=== PATIENT | female | born 1955 | race Caucasian/White ===

== ENCOUNTER 2020-05-26 17:06 | Inpatient (IN) | payer SELFPAY ==
[2020-05-26 17:48] LABS: #Monocytes 0.4 10x3/uL (0.0-1.1); #Neutrophils 4.3 10x3/uL (1.5-8.4); %Basophils 0.2 % (0.0-2.0); %Lymphocytes 15.2 % (18.0-47.0); %Monocytes 6.8 % (0.0-10.0); %Neutrophils 77.6 % (40.0-75.0); Hemoglobin 12.2 g/dL (12.0-15.5); Mean Corpuscular HGB CONC 31.5 g/dL (32.0-36.0); Mean Corpuscular Hemoglobin 25.8 pg (27.0-33.0); Mean Platelet Volume 9.7 fl (7.4-10.4); Platelet Count 320 10x3/uL (150-450); RBC Distribution Width 17.9 % (11.5-14.5); Red Blood Cell (RBC) Count 4.72 10x6/uL (3.90-5.03); White Blood Cell (WBC) Count 5.5 10x3/uL (3.5-10.5)
[2020-05-26 18:00] LABS: ALT (SGPT) 20 U/L (8-55); AST (SGOT) 35 U/L (5-34); Albumin 4.2 g/dL (3.4-4.8); Alkaline Phosphatase 66 U/L (40-110); Anion Gap 13 mmol/L (10-20); BUN (Urea Nitrogen) 12 mg/dL (9.8-20.1); Bilirubin, Total 0.4 mg/dL (0.2-1.2); Calc. Creatinine Clearance 0 mL/min (70-130); Calcium 10.3 mg/dL (7.8-10.44); Carbon Dioxide 31 mmol/L (23-31); Chloride 89 mmol/L (98-107); Globulin 3.4 g/dL (2.4-3.5); Glucose 117 mg/dL (80-115); Potassium 3.3 mmol/L (3.5-5.1); Protein, Total 7.6 g/dL (5.8-8.1); Sodium 130 mmol/L (136-145)
[2020-05-26] MEDS ORDERED: Dexamethasone 4 mg/ml Vial ONE (20:25)
[2020-05-26 22:13] LABS: SARS-CoV-2 NAA Rapid Test DETECTED (NotDetected)
[2020-05-26] MEDS ORDERED: Ondansetron PF 4 MG/2 ML Vial IVP PRN (22:18)
[2020-05-26] MEDS ORDERED: Acetaminophen 325 MG TAB PO PRN (22:18)
[2020-05-26] MEDS ORDERED: Calcium Carbonate 500 MG ChewTAB PO PRN (22:18)
[2020-05-26] MEDS ORDERED: Senokot S 8.6-50 MG TAB PO PRN (22:18)
[2020-05-26] MEDS ORDERED: Sodium Chloride 0.9% 1,000 ML IV SCH (22:30)
[2020-05-27 00:24] VITALS: BMI 42.9
[2020-05-27] MEDS ORDERED: Potassium Chloride 20 MEQ TAB PO SCH (01:05)
[2020-05-27 04:04] LABS: Legionella Urinary Ag Negative (Negative); Strep pneumo Urine Ag NEGATIVE (NEGATIVE)
[2020-05-27 07:10] LABS: #Monocytes 0.3 10x3/uL (0.0-1.1); #Neutrophils 1.9 10x3/uL (1.5-8.4); %Lymphocytes 22.3 % (18.0-47.0); %Monocytes 9.4 % (0.0-10.0); %Neutrophils 67.9 % (40.0-75.0); Hemoglobin 10.8 g/dL (12.0-15.5); Mean Corpuscular HGB CONC 30.9 g/dL (32.0-36.0); Mean Corpuscular Hemoglobin 25.4 pg (27.0-33.0); Mean Corpuscular Volume 81.9 fl (81.6-98.3); Mean Platelet Volume 9.6 fl (7.4-10.4); Platelet Count 295 10x3/uL (150-450); RBC Distribution Width 18.1 % (11.5-14.5); Red Blood Cell (RBC) Count 4.26 10x6/uL (3.90-5.03); White Blood Cell (WBC) Count 2.8 10x3/uL (3.5-10.5)
[2020-05-27 07:38] LABS: ALT (SGPT) 17 U/L (8-55); AST (SGOT) 34 U/L (5-34); Albumin 3.6 g/dL (3.4-4.8); Alkaline Phosphatase 54 U/L (40-110); Anion Gap 15 mmol/L (10-20); BUN (Urea Nitrogen) 10 mg/dL (9.8-20.1); Bilirubin, Total 0.3 mg/dL (0.2-1.2); CRP (Inflammatory) 14.83 mg/dL (= or < 0.5); Calc. Creatinine Clearance 172 mL/min (70-130); Carbon Dioxide 23 mmol/L (23-31); Chloride 97 mmol/L (98-107); Globulin 3.1 g/dL (2.4-3.5); Glucose 120 mg/dL (80-115); Potassium 4.2 mmol/L (3.5-5.1); Protein, Total 6.7 g/dL (5.8-8.1); Sodium 131 mmol/L (136-145)
[2020-05-27] MEDS: Cepastat Lozenges 1 LOZ PO PRN ×2 (07:55→21:21)
[2020-05-27] MEDS ORDERED: Lisinopril 10 MG TAB PO SCH (09:00)
[2020-05-27] MEDS: Levothyroxine Sodium 50 MCG TAB PO SCH (09:06)
[2020-05-27] MEDS: Enoxaparin Sodium 40 MG/0.4 ML SYRINGE SC SCH ×2 (09:22→21:22)
[2020-05-27] MEDS: Atenolol 25 MG TAB PO SCH (09:22)
[2020-05-27] MEDS: Benzonatate 100 MG CAP PO SCH ×3 (09:44→21:21)
[2020-05-27] MEDS: Cholecalciferol 1,000 UNITS (25 MCG) TAB PO SCH (09:44)
[2020-05-27] MEDS: Escitalopram Oxalate 10 mg Tablet PO SCH (09:45)
[2020-05-27] MEDS: Ascorbic Acid 500 mg Chewable Tablet PO SCH (09:45)
[2020-05-27] MEDS: Dexamethasone 4 mg/ml Vial SLOW IVP SCH (09:45)
[2020-05-27] MEDS: Aspirin 81 mg Enteric Coated Tablet PO SCH (09:45)
[2020-05-27] MEDS: Zinc Gluconate 50 MG TAB PO SCH (09:45)
[2020-05-27] MEDS ORDERED: REMDESIVIR (EUA) 200 MG in Sodium Chloride 0.9% 250 ML 210 ML IV SCH (10:00)
[2020-05-27] MEDS ORDERED: Sodium Chloride 0.9% 250 ML 250 ML ONE (10:08)
[2020-05-27 10:20] LABS: Ferritin 123.15 ng/mL (10-291); Thyroid Stimulating Hormone 2.5091 uIU/mL (0.35-4.94)
[2020-05-27] MEDS: Atorvastatin Calcium 10 MG TAB PO SCH (21:21)
[2020-05-28] MEDS: Levothyroxine Sodium 50 MCG TAB PO SCH (05:30)
[2020-05-28 06:23] LABS: ALT (SGPT) 15 U/L (8-55); AST (SGOT) 30 U/L (5-34); Albumin 3.4 g/dL (3.4-4.8); Alkaline Phosphatase 51 U/L (40-110); Bilirubin, Direct 0.2 mg/dL (0.1-0.3); Bilirubin, Total 0.3 mg/dL (0.2-1.2); Protein, Total 6.2 g/dL (5.8-8.1)
[2020-05-28 09:04] LABS: #Monocytes 0.8 10x3/uL (0.0-1.1); #Neutrophils 5.1 10x3/uL (1.5-8.4); %Basophils 0.4 % (0.0-2.0); %Eosinophils 0.1 % (0.0-6.0); %Monocytes 11.5 % (0.0-10.0); %Neutrophils 70.9 % (40.0-75.0); Hemoglobin 11.4 g/dL (12.0-15.5); Mean Corpuscular HGB CONC 30.6 g/dL (32.0-36.0); Mean Corpuscular Hemoglobin 25.7 pg (27.0-33.0); Mean Corpuscular Volume 83.8 fl (81.6-98.3); Mean Platelet Volume 10.1 fl (7.4-10.4); Platelet Count 309 10x3/uL (150-450); RBC Distribution Width 19.3 % (11.5-14.5); Red Blood Cell (RBC) Count 4.44 10x6/uL (3.90-5.03); White Blood Cell (WBC) Count 7.1 10x3/uL (3.5-10.5)
[2020-05-28 09:12] LABS: Anion Gap 17 mmol/L (10-20); BUN (Urea Nitrogen) 16 mg/dL (9.8-20.1); Calc. Creatinine Clearance 164 mL/min (70-130); Carbon Dioxide 22 mmol/L (23-31); Chloride 99 mmol/L (98-107); Glucose 80 mg/dL (80-115); Potassium 4.1 mmol/L (3.5-5.1); Sodium 134 mmol/L (136-145)
[2020-05-28] MEDS: Dexamethasone 4 mg/ml Vial SLOW IVP SCH (09:38)
[2020-05-28] MEDS: Benzonatate 100 MG CAP PO SCH ×3 (09:39→20:20)
[2020-05-28] MEDS: Atenolol 25 MG TAB PO SCH (09:39)
[2020-05-28] MEDS: Cholecalciferol 1,000 UNITS (25 MCG) TAB PO SCH (09:39)
[2020-05-28] MEDS: Escitalopram Oxalate 10 mg Tablet PO SCH (09:39)
[2020-05-28] MEDS: Aspirin 81 mg Enteric Coated Tablet PO SCH (09:39)
[2020-05-28] MEDS: Ascorbic Acid 500 mg Chewable Tablet PO SCH (09:39)
[2020-05-28] MEDS: Enoxaparin Sodium 40 MG/0.4 ML SYRINGE SC SCH ×2 (09:40→20:20)
[2020-05-28] MEDS: Zinc Gluconate 50 MG TAB PO SCH (09:40)
[2020-05-28] MEDS: Cepastat Lozenges 1 LOZ PO PRN ×3 (09:44→20:21)
[2020-05-28] MEDS: REMDESIVIR (EUA) 100 MG in Sodium Chloride 0.9% 250 ML 230 ML IV SCH (10:57)
[2020-05-28] MEDS: Atorvastatin Calcium 10 MG TAB PO SCH (20:20)
[2020-05-29] MEDS: Levothyroxine Sodium 50 MCG TAB PO SCH (06:06)
[2020-05-29 08:38] LABS: ALT (SGPT) 15 U/L (8-55); AST (SGOT) 30 U/L (5-34); Albumin 3.3 g/dL (3.4-4.8); Alkaline Phosphatase 60 U/L (40-110); Bilirubin, Direct 0.2 mg/dL (0.1-0.3); Bilirubin, Total 0.4 mg/dL (0.2-1.2); Protein, Total 6.1 g/dL (5.8-8.1)
[2020-05-29] MEDS: REMDESIVIR (EUA) 100 MG in Sodium Chloride 0.9% 250 ML 230 ML IV SCH (09:22)
[2020-05-29] MEDS: Aspirin 81 mg Enteric Coated Tablet PO SCH (09:23)
[2020-05-29] MEDS: Zinc Gluconate 50 MG TAB PO SCH (09:23)
[2020-05-29] MEDS: Atenolol 25 MG TAB PO SCH (09:23)
[2020-05-29] MEDS: Cepastat Lozenges 1 LOZ PO PRN ×2 (09:23→21:45)
[2020-05-29] MEDS: Ascorbic Acid 500 mg Chewable Tablet PO SCH (09:24)
[2020-05-29] MEDS: Escitalopram Oxalate 10 mg Tablet PO SCH (09:24)
[2020-05-29] MEDS: Benzonatate 100 MG CAP PO SCH ×3 (09:24→21:45)
[2020-05-29] MEDS: Cholecalciferol 1,000 UNITS (25 MCG) TAB PO SCH (09:24)
[2020-05-29] MEDS: Dexamethasone 4 mg/ml Vial SLOW IVP SCH (09:24)
[2020-05-29] MEDS: Enoxaparin Sodium 40 MG/0.4 ML SYRINGE SC SCH ×2 (09:25→21:45)
[2020-05-29] MEDS: Atorvastatin Calcium 10 MG TAB PO SCH (21:45)
[2020-05-30 06:04] LABS: %Lymphocytes 13.2 % (18.0-47.0); %Monocytes 6.8 % (0.0-10.0); %Neutrophils 79.2 % (40.0-75.0); Hemoglobin 11.1 g/dL (12.0-15.5); Mean Corpuscular HGB CONC 30.6 g/dL (32.0-36.0); Mean Corpuscular Hemoglobin 24.9 pg (27.0-33.0); Mean Corpuscular Volume 81.4 fl (81.6-98.3); Mean Platelet Volume 10.2 fl (7.4-10.4); Platelet Count 420 10x3/uL (150-450); RBC Distribution Width 18.2 % (11.5-14.5); Red Blood Cell (RBC) Count 4.46 10x6/uL (3.90-5.03); White Blood Cell (WBC) Count 9.3 10x3/uL (3.5-10.5)
[2020-05-30 06:05] LABS: #Monocytes 0.6 10x3/uL (0.0-1.1); #Neutrophils 7.4 10x3/uL (1.5-8.4); %Basophils 0.1 % (0.0-2.0); %Eosinophils 0.1 % (0.0-6.0)
[2020-05-30 06:11] LABS: ALT (SGPT) 14 U/L (8-55); AST (SGOT) 27 U/L (5-34); Albumin 3.2 g/dL (3.4-4.8); Alkaline Phosphatase 59 U/L (40-110); Anion Gap 12 mmol/L (10-20); BUN (Urea Nitrogen) 16 mg/dL (9.8-20.1); Bilirubin, Direct 0.2 mg/dL (0.1-0.3); Bilirubin, Total 0.4 mg/dL (0.2-1.2); Calc. Creatinine Clearance 175 mL/min (70-130); Calcium 10.2 mg/dL (7.8-10.44); Carbon Dioxide 28 mmol/L (23-31); Chloride 100 mmol/L (98-107); Glucose 116 mg/dL (80-115); Potassium 3.9 mmol/L (3.5-5.1); Sodium 136 mmol/L (136-145)
[2020-05-30] MEDS: Levothyroxine Sodium 50 MCG TAB PO SCH (06:16)
[2020-05-30] MEDS: Cepastat Lozenges 1 LOZ PO PRN ×4 (09:16→20:43)
[2020-05-30] MEDS: Atenolol 25 MG TAB PO SCH (09:16)
[2020-05-30] MEDS: Cholecalciferol 1,000 UNITS (25 MCG) TAB PO SCH (09:17)
[2020-05-30] MEDS: Escitalopram Oxalate 10 mg Tablet PO SCH (09:17)
[2020-05-30] MEDS: Zinc Gluconate 50 MG TAB PO SCH (09:17)
[2020-05-30] MEDS: Benzonatate 100 MG CAP PO SCH ×3 (09:17→20:43)
[2020-05-30] MEDS: Enoxaparin Sodium 40 MG/0.4 ML SYRINGE SC SCH ×2 (09:17→20:43)
[2020-05-30] MEDS: Ascorbic Acid 500 mg Chewable Tablet PO SCH (09:17)
[2020-05-30] MEDS: Dexamethasone 4 mg/ml Vial SLOW IVP SCH (09:17)
[2020-05-30] MEDS: Aspirin 81 mg Enteric Coated Tablet PO SCH (09:17)
[2020-05-30] MEDS: REMDESIVIR (EUA) 100 MG in Sodium Chloride 0.9% 250 ML 230 ML IV SCH (09:18)
[2020-05-30] MEDS ORDERED: Furosemide 40 MG/4 ML VIAL SLOW IVP SCH (13:00)
[2020-05-30] MEDS: Atorvastatin Calcium 10 MG TAB PO SCH (20:43)
[2020-05-31] MEDS: Levothyroxine Sodium 50 MCG TAB PO SCH (06:14)
[2020-05-31 07:48] LABS: ALT (SGPT) 12 U/L (8-55); AST (SGOT) 29 U/L (5-34); Albumin 3.1 g/dL (3.4-4.8); Alkaline Phosphatase 60 U/L (40-110); Bilirubin, Direct 0.2 mg/dL (0.1-0.3); Bilirubin, Total 0.5 mg/dL (0.2-1.2); Protein, Total 6.1 g/dL (5.8-8.1)
[2020-05-31] MEDS: Enoxaparin Sodium 40 MG/0.4 ML SYRINGE SC SCH ×2 (09:51→20:03)
[2020-05-31] MEDS: Benzonatate 100 MG CAP PO SCH ×3 (09:52→20:03)
[2020-05-31] MEDS: Ascorbic Acid 500 mg Chewable Tablet PO SCH (09:52)
[2020-05-31] MEDS: Zinc Gluconate 50 MG TAB PO SCH (09:52)
[2020-05-31] MEDS: Escitalopram Oxalate 10 mg Tablet PO SCH (09:52)
[2020-05-31] MEDS: Aspirin 81 mg Enteric Coated Tablet PO SCH (09:52)
[2020-05-31] MEDS: Cholecalciferol 1,000 UNITS (25 MCG) TAB PO SCH (09:52)
[2020-05-31] MEDS: Furosemide 40 MG/4 ML VIAL SLOW IVP SCH (09:53)
[2020-05-31] MEDS: Dexamethasone 4 mg/ml Vial SLOW IVP SCH (09:54)
[2020-05-31] MEDS: Atenolol 25 MG TAB PO SCH (09:57)
[2020-05-31] MEDS: Hydrochlorothiazide 25 MG TAB PO SCH (09:57)
[2020-05-31] MEDS: REMDESIVIR (EUA) 100 MG in Sodium Chloride 0.9% 250 ML 230 ML IV SCH (10:46)
[2020-05-31] MEDS: Furosemide 20 MG/2 ML VIAL SLOW IVP SCH (14:49)
[2020-05-31] MEDS: Atorvastatin Calcium 10 MG TAB PO SCH (20:03)
[2020-06-01] MEDS: Levothyroxine Sodium 50 MCG TAB PO SCH (05:03)
[2020-06-01 06:53] LABS: #Monocytes 0.5 10x3/uL (0.0-1.1); #Neutrophils 8.7 10x3/uL (1.5-8.4); %Basophils 0.1 % (0.0-2.0); %Eosinophils 0.2 % (0.0-6.0); %Lymphocytes 12.1 % (18.0-47.0); %Monocytes 4.7 % (0.0-10.0); %Neutrophils 82.3 % (40.0-75.0); Hemoglobin 11.7 g/dL (12.0-15.5); Mean Corpuscular HGB CONC 30.9 g/dL (32.0-36.0); Mean Platelet Volume 9.9 fl (7.4-10.4); Platelet Count 528 10x3/uL (150-450); RBC Distribution Width 18.4 % (11.5-14.5); Red Blood Cell (RBC) Count 4.68 10x6/uL (3.90-5.03); White Blood Cell (WBC) Count 10.6 10x3/uL (3.5-10.5)
[2020-06-01 07:00] LABS: Anion Gap 12 mmol/L (10-20); BUN (Urea Nitrogen) 21 mg/dL (9.8-20.1); Calc. Creatinine Clearance 178 mL/min (70-130); Calcium 10.4 mg/dL (7.8-10.44); Carbon Dioxide 30 mmol/L (23-31); Chloride 98 mmol/L (98-107); Glucose 131 mg/dL (80-115); Potassium 3.3 mmol/L (3.5-5.1); Sodium 137 mmol/L (136-145)
[2020-06-01] MEDS: Enoxaparin Sodium 40 MG/0.4 ML SYRINGE SC SCH ×2 (09:56→21:06)
[2020-06-01] MEDS: Benzonatate 100 MG CAP PO SCH ×3 (09:57→21:06)
[2020-06-01] MEDS: Cholecalciferol 1,000 UNITS (25 MCG) TAB PO SCH (09:57)
[2020-06-01] MEDS: Zinc Gluconate 50 MG TAB PO SCH (09:57)
[2020-06-01] MEDS: Ascorbic Acid 500 mg Chewable Tablet PO SCH (09:57)
[2020-06-01] MEDS: Furosemide 40 MG/4 ML VIAL SLOW IVP SCH (09:57)
[2020-06-01] MEDS: Aspirin 81 mg Enteric Coated Tablet PO SCH (09:57)
[2020-06-01] MEDS: Escitalopram Oxalate 10 mg Tablet PO SCH (09:57)
[2020-06-01] MEDS: Dexamethasone 4 mg/ml Vial SLOW IVP SCH (09:58)
[2020-06-01] MEDS: Hydrochlorothiazide 25 MG TAB PO SCH (09:59)
[2020-06-01] MEDS: Atenolol 25 MG TAB PO SCH (09:59)
[2020-06-01] MEDS: Furosemide 20 MG/2 ML VIAL SLOW IVP SCH (14:44)
[2020-06-01] MEDS ORDERED: Potassium Chloride 20 MEQ TAB PO SCH (17:00)
[2020-06-01] MEDS: Atorvastatin Calcium 10 MG TAB PO SCH (21:06)
[2020-06-01] MEDS: Cepastat Lozenges 1 LOZ PO PRN (21:07)
[2020-06-02] MEDS: Cepastat Lozenges 1 LOZ PO PRN ×2 (05:32→09:40)
[2020-06-02 05:33] LABS: #Monocytes 0.5 10x3/uL (0.0-1.1); #Neutrophils 6.6 10x3/uL (1.5-8.4); %Basophils 0.1 % (0.0-2.0); %Eosinophils 0.4 % (0.0-6.0); %Lymphocytes 13.5 % (18.0-47.0); %Monocytes 5.8 % (0.0-10.0); %Neutrophils 79.6 % (40.0-75.0); Hemoglobin 11.5 g/dL (12.0-15.5); Mean Corpuscular Hemoglobin 25.3 pg (27.0-33.0); Mean Corpuscular Volume 81.5 fl (81.6-98.3); Mean Platelet Volume 10.4 fl (7.4-10.4); Platelet Count 556 10x3/uL (150-450); RBC Distribution Width 18.4 % (11.5-14.5); Red Blood Cell (RBC) Count 4.55 10x6/uL (3.90-5.03); White Blood Cell (WBC) Count 8.2 10x3/uL (3.5-10.5)
[2020-06-02] MEDS: Levothyroxine Sodium 50 MCG TAB PO SCH (05:33)
[2020-06-02 05:42] LABS: Anion Gap 12 mmol/L (10-20); BUN (Urea Nitrogen) 19 mg/dL (9.8-20.1); Calc. Creatinine Clearance 182 mL/min (70-130); Calcium 10.4 mg/dL (7.8-10.44); Carbon Dioxide 33 mmol/L (23-31); Chloride 96 mmol/L (98-107); Glucose 118 mg/dL (80-115); Potassium 3.9 mmol/L (3.5-5.1); Sodium 137 mmol/L (136-145)
[2020-06-02] MEDS: Cholecalciferol 1,000 UNITS (25 MCG) TAB PO SCH (09:40)
[2020-06-02] MEDS: Enoxaparin Sodium 40 MG/0.4 ML SYRINGE SC SCH ×2 (09:40→20:53)
[2020-06-02] MEDS: Escitalopram Oxalate 10 mg Tablet PO SCH (09:40)
[2020-06-02] MEDS: Aspirin 81 mg Enteric Coated Tablet PO SCH (09:41)
[2020-06-02] MEDS: Zinc Gluconate 50 MG TAB PO SCH (09:41)
[2020-06-02] MEDS: Benzonatate 100 MG CAP PO SCH ×3 (09:41→20:53)
[2020-06-02] MEDS: Ascorbic Acid 500 mg Chewable Tablet PO SCH (09:41)
[2020-06-02] MEDS: Furosemide 40 MG/4 ML VIAL SLOW IVP SCH (09:42)
[2020-06-02] MEDS: Dexamethasone 4 mg/ml Vial SLOW IVP SCH (09:42)
[2020-06-02 11:46] LABS: ALV-art Gradient 597.825 mmHg (0-20); Actual Bicarbonate (HCO3a) 31.4 mEq/L (22-28); Base Excess (BEa) 7.8 mEq/L (-2.0 to +3.0); CO2 Tension 40.3 mmHg (35.0-45.0); Calcium, Ionized (arterial) 1.33 mmol/L (1.12-1.30); Carboxyhemoglobin (COHb) 0.2 gm% (0.0-3.0); Hemoglobin (Hb) 13.3 g/dL (12.0-16.0); O2 Tension (PaO2), arterial 64.8 mmHg (> 80.0); Potassium - ABG Lab 3.5 mmol/L (3.70-5.30); Puncture Site RBA; pH, Arterial 7.51 (7.35-7.45)
[2020-06-02] MEDS: Atorvastatin Calcium 10 MG TAB PO SCH (20:53)
[2020-06-03] MEDS: Levothyroxine Sodium 50 MCG TAB PO SCH (06:44)
[2020-06-03 07:56] LABS: #Eosinphils 0.1 10x3/uL (0.0-0.5); #Monocytes 0.5 10x3/uL (0.0-1.1); #Neutrophils 5.5 10x3/uL (1.5-8.4); %Basophils 0.1 % (0.0-2.0); %Eosinophils 0.9 % (0.0-6.0); %Lymphocytes 17.4 % (18.0-47.0); %Monocytes 7.2 % (0.0-10.0); %Neutrophils 73.9 % (40.0-75.0); Hemoglobin 11.5 g/dL (12.0-15.5); Mean Corpuscular HGB CONC 30.5 g/dL (32.0-36.0); Mean Corpuscular Hemoglobin 24.9 pg (27.0-33.0); Mean Corpuscular Volume 81.8 fl (81.6-98.3); Mean Platelet Volume 10.5 fl (7.4-10.4); Platelet Count 588 10x3/uL (150-450); RBC Distribution Width 18.5 % (11.5-14.5); Red Blood Cell (RBC) Count 4.61 10x6/uL (3.90-5.03); White Blood Cell (WBC) Count 7.5 10x3/uL (3.5-10.5)
[2020-06-03 08:05] LABS: Anion Gap 15 mmol/L (10-20); BUN (Urea Nitrogen) 19 mg/dL (9.8-20.1); Calc. Creatinine Clearance 167 mL/min (70-130); Calcium 10.6 mg/dL (7.8-10.44); Carbon Dioxide 31 mmol/L (23-31); Chloride 94 mmol/L (98-107); Glucose 113 mg/dL (80-115); Potassium 3.8 mmol/L (3.5-5.1); Sodium 136 mmol/L (136-145)
[2020-06-03] MEDS: Dexamethasone 4 mg/ml Vial SLOW IVP SCH (09:00)
[2020-06-03] MEDS: Aspirin 81 mg Enteric Coated Tablet PO SCH (09:00)
[2020-06-03] MEDS: Cholecalciferol 1,000 UNITS (25 MCG) TAB PO SCH (09:00)
[2020-06-03] MEDS: Escitalopram Oxalate 10 mg Tablet PO SCH (09:00)
[2020-06-03] MEDS: Ascorbic Acid 500 mg Chewable Tablet PO SCH (09:00)
[2020-06-03] MEDS: Enoxaparin Sodium 40 MG/0.4 ML SYRINGE SC SCH ×2 (09:00→21:04)
[2020-06-03] MEDS: Zinc Gluconate 50 MG TAB PO SCH (09:00)
[2020-06-03] MEDS: Furosemide 40 MG/4 ML VIAL SLOW IVP SCH (09:00)
[2020-06-03] MEDS: Benzonatate 100 MG CAP PO SCH ×3 (09:00→21:21)
[2020-06-03] MEDS: Nystatin 500,000 UNITS/5 ML UDCUP SSW SCH (21:04)
[2020-06-03] MEDS: Atorvastatin Calcium 10 MG TAB PO SCH (21:20)
[2020-06-04] MEDS: Levothyroxine Sodium 50 MCG TAB PO SCH (06:46)
[2020-06-04] MEDS: Enoxaparin Sodium 40 MG/0.4 ML SYRINGE SC SCH ×2 (08:23→22:25)
[2020-06-04] MEDS: Furosemide 40 MG/4 ML VIAL SLOW IVP SCH (08:23)
[2020-06-04] MEDS: Aspirin 81 mg Enteric Coated Tablet PO SCH (08:24)
[2020-06-04] MEDS: Escitalopram Oxalate 10 mg Tablet PO SCH (08:24)
[2020-06-04] MEDS: Zinc Gluconate 50 MG TAB PO SCH (08:24)
[2020-06-04] MEDS: Ascorbic Acid 500 mg Chewable Tablet PO SCH (08:24)
[2020-06-04] MEDS: Cholecalciferol 1,000 UNITS (25 MCG) TAB PO SCH (08:24)
[2020-06-04] MEDS: Dexamethasone 4 mg/ml Vial SLOW IVP SCH (08:24)
[2020-06-04] MEDS: Nystatin 500,000 UNITS/5 ML UDCUP SSW SCH ×4 (08:25→22:26)
[2020-06-04] MEDS: Benzonatate 100 MG CAP PO SCH ×3 (08:25→22:25)
[2020-06-04] MEDS: Atorvastatin Calcium 10 MG TAB PO SCH (22:25)
[2020-06-05] MEDS: Levothyroxine Sodium 50 MCG TAB PO SCH (06:46)
[2020-06-05] MEDS: Cholecalciferol 1,000 UNITS (25 MCG) TAB PO SCH (07:57)
[2020-06-05] MEDS: Zinc Gluconate 50 MG TAB PO SCH (07:58)
[2020-06-05] MEDS: Escitalopram Oxalate 10 mg Tablet PO SCH (07:58)
[2020-06-05] MEDS: Aspirin 81 mg Enteric Coated Tablet PO SCH (07:59)
[2020-06-05] MEDS: Ascorbic Acid 500 mg Chewable Tablet PO SCH (07:59)
[2020-06-05] MEDS: Benzonatate 100 MG CAP PO SCH ×3 (07:59→20:19)
[2020-06-05] MEDS: Dexamethasone 4 mg/ml Vial SLOW IVP SCH (07:59)
[2020-06-05] MEDS: Furosemide 40 MG/4 ML VIAL SLOW IVP SCH (08:00)
[2020-06-05] MEDS: Enoxaparin Sodium 40 MG/0.4 ML SYRINGE SC SCH ×2 (08:00→20:19)
[2020-06-05] MEDS: Nystatin 500,000 UNITS/5 ML UDCUP SSW SCH ×4 (08:00→20:19)
[2020-06-05] MEDS: Guaifenesin DM 100-10/5 ML UDCUP PO PRN ×2 (10:45→15:40)
[2020-06-05] MEDS: Cepastat Lozenges 1 LOZ PO PRN ×2 (10:45→15:40)
[2020-06-05] MEDS: Atorvastatin Calcium 10 MG TAB PO SCH (20:19)
[2020-06-06] MEDS: Guaifenesin DM 100-10/5 ML UDCUP PO PRN ×3 (01:00→17:36)
[2020-06-06] MEDS: Levothyroxine Sodium 50 MCG TAB PO SCH (06:16)
[2020-06-06] MEDS: Nystatin 500,000 UNITS/5 ML UDCUP SSW SCH ×4 (08:30→20:36)
[2020-06-06] MEDS: Benzonatate 100 MG CAP PO SCH ×3 (08:31→20:36)
[2020-06-06] MEDS: Aspirin 81 mg Enteric Coated Tablet PO SCH (08:31)
[2020-06-06] MEDS: Cholecalciferol 1,000 UNITS (25 MCG) TAB PO SCH (08:31)
[2020-06-06] MEDS: Zinc Gluconate 50 MG TAB PO SCH (08:31)
[2020-06-06] MEDS: Ascorbic Acid 500 mg Chewable Tablet PO SCH (08:31)
[2020-06-06] MEDS: Escitalopram Oxalate 10 mg Tablet PO SCH (08:32)
[2020-06-06] MEDS: Dexamethasone 4 mg/ml Vial SLOW IVP SCH (08:32)
[2020-06-06] MEDS: Furosemide 40 MG/4 ML VIAL SLOW IVP SCH (08:34)
[2020-06-06] MEDS: Enoxaparin Sodium 40 MG/0.4 ML SYRINGE SC SCH ×2 (08:35→20:31)
[2020-06-06] MEDS: Cepastat Lozenges 1 LOZ PO PRN (18:10)
[2020-06-06] MEDS: Atorvastatin Calcium 10 MG TAB PO SCH (20:36)
[2020-06-07] MEDS: Levothyroxine Sodium 50 MCG TAB PO SCH (05:07)
[2020-06-07 05:21] LABS: #Eosinphils 0.1 10x3/uL (0.0-0.5); #Monocytes 0.9 10x3/uL (0.0-1.1); #Neutrophils 5.4 10x3/uL (1.5-8.4); %Basophils 0.1 % (0.0-2.0); %Eosinophils 0.6 % (0.0-6.0); %Lymphocytes 26.1 % (18.0-47.0); %Monocytes 10.2 % (0.0-10.0); %Neutrophils 62.1 % (40.0-75.0); Hemoglobin 11.5 g/dL (12.0-15.5); Mean Corpuscular HGB CONC 30.7 g/dL (32.0-36.0); Mean Corpuscular Hemoglobin 25.4 pg (27.0-33.0); Platelet Count 500 10x3/uL (150-450); RBC Distribution Width 18.1 % (11.5-14.5); Red Blood Cell (RBC) Count 4.52 10x6/uL (3.90-5.03); White Blood Cell (WBC) Count 8.6 10x3/uL (3.5-10.5)
[2020-06-07 05:34] LABS: ALT (SGPT) 22 U/L (8-55); AST (SGOT) 21 U/L (5-34); Albumin 3.3 g/dL (3.4-4.8); Alkaline Phosphatase 62 U/L (40-110); Anion Gap 15 mmol/L (10-20); BUN (Urea Nitrogen) 24 mg/dL (9.8-20.1); Bilirubin, Total 0.5 mg/dL (0.2-1.2); Calc. Creatinine Clearance 157 mL/min (70-130); Calcium 10.6 mg/dL (7.8-10.44); Carbon Dioxide 35 mmol/L (23-31); Chloride 91 mmol/L (98-107); Glucose 116 mg/dL (80-115); Potassium 3.7 mmol/L (3.5-5.1); Protein, Total 6.3 g/dL (5.8-8.1); Sodium 137 mmol/L (136-145)
[2020-06-07] MEDS: Enoxaparin Sodium 40 MG/0.4 ML SYRINGE SC SCH ×2 (08:32→20:08)
[2020-06-07] MEDS: Nystatin 500,000 UNITS/5 ML UDCUP SSW SCH ×4 (08:33→20:08)
[2020-06-07] MEDS: Aspirin 81 mg Enteric Coated Tablet PO SCH (08:33)
[2020-06-07] MEDS: Dexamethasone 4 mg/ml Vial SLOW IVP SCH (08:33)
[2020-06-07] MEDS: Escitalopram Oxalate 10 mg Tablet PO SCH (08:33)
[2020-06-07] MEDS: Ascorbic Acid 500 mg Chewable Tablet PO SCH (08:33)
[2020-06-07] MEDS: Cholecalciferol 1,000 UNITS (25 MCG) TAB PO SCH (08:33)
[2020-06-07] MEDS: Benzonatate 100 MG CAP PO SCH ×3 (08:33→20:08)
[2020-06-07] MEDS: Furosemide 40 MG/4 ML VIAL SLOW IVP SCH (08:33)
[2020-06-07] MEDS: Zinc Gluconate 50 MG TAB PO SCH (08:33)
[2020-06-07] MEDS: Atorvastatin Calcium 10 MG TAB PO SCH (20:08)
[2020-06-08] MEDS: Levothyroxine Sodium 50 MCG TAB PO SCH (06:15)
[2020-06-08] MEDS: Zinc Gluconate 50 MG TAB PO SCH (08:18)
[2020-06-08] MEDS: Enoxaparin Sodium 40 MG/0.4 ML SYRINGE SC SCH ×2 (08:19→21:56)
[2020-06-08] MEDS: Dexamethasone 4 mg/ml Vial SLOW IVP SCH (08:19)
[2020-06-08] MEDS: Escitalopram Oxalate 10 mg Tablet PO SCH (08:19)
[2020-06-08] MEDS: Aspirin 81 mg Enteric Coated Tablet PO SCH (08:19)
[2020-06-08] MEDS: Nystatin 500,000 UNITS/5 ML UDCUP SSW SCH ×4 (08:19→21:56)
[2020-06-08] MEDS: Benzonatate 100 MG CAP PO SCH ×3 (08:19→21:56)
[2020-06-08] MEDS: Ascorbic Acid 500 mg Chewable Tablet PO SCH (08:19)
[2020-06-08] MEDS: Furosemide 40 MG TAB PO SCH (08:19)
[2020-06-08] MEDS: Cholecalciferol 1,000 UNITS (25 MCG) TAB PO SCH (08:20)
[2020-06-08] MEDS: Atorvastatin Calcium 10 MG TAB PO SCH (21:56)
[2020-06-09] MEDS: Furosemide 40 MG TAB PO SCH (06:06)
[2020-06-09] MEDS: Levothyroxine Sodium 50 MCG TAB PO SCH (06:06)
[2020-06-09] MEDS: Enoxaparin Sodium 40 MG/0.4 ML SYRINGE SC SCH ×2 (08:56→20:32)
[2020-06-09] MEDS: Aspirin 81 mg Enteric Coated Tablet PO SCH (08:56)
[2020-06-09] MEDS: Ascorbic Acid 500 mg Chewable Tablet PO SCH (08:56)
[2020-06-09] MEDS: Dexamethasone 4 mg/ml Vial SLOW IVP SCH ×2 (08:56→19:01)
[2020-06-09] MEDS: Benzonatate 100 MG CAP PO SCH ×3 (08:56→20:31)
[2020-06-09] MEDS: Nystatin 500,000 UNITS/5 ML UDCUP SSW SCH ×4 (08:56→20:31)
[2020-06-09] MEDS: Zinc Gluconate 50 MG TAB PO SCH (08:57)
[2020-06-09] MEDS: Escitalopram Oxalate 10 mg Tablet PO SCH (08:57)
[2020-06-09] MEDS: Cholecalciferol 1,000 UNITS (25 MCG) TAB PO SCH (08:57)
[2020-06-09] MEDS: Atorvastatin Calcium 10 MG TAB PO SCH (20:31)
[2020-06-10] MEDS: Levothyroxine Sodium 50 MCG TAB PO SCH (06:03)
[2020-06-10] MEDS: Nystatin 500,000 UNITS/5 ML UDCUP SSW SCH ×4 (09:00→20:34)
[2020-06-10] MEDS: Ascorbic Acid 500 mg Chewable Tablet PO SCH (09:01)
[2020-06-10] MEDS: Aspirin 81 mg Enteric Coated Tablet PO SCH (09:01)
[2020-06-10] MEDS: Cholecalciferol 1,000 UNITS (25 MCG) TAB PO SCH (09:01)
[2020-06-10] MEDS: Furosemide 40 MG TAB PO SCH (09:01)
[2020-06-10] MEDS: Escitalopram Oxalate 10 mg Tablet PO SCH (09:01)
[2020-06-10] MEDS: Zinc Gluconate 50 MG TAB PO SCH (09:01)
[2020-06-10] MEDS: Enoxaparin Sodium 40 MG/0.4 ML SYRINGE SC SCH ×2 (09:01→20:34)
[2020-06-10] MEDS: Benzonatate 100 MG CAP PO SCH ×3 (09:01→20:34)
[2020-06-10] MEDS: Dexamethasone 4 mg/ml Vial SLOW IVP SCH (09:03)
[2020-06-10] MEDS: Atorvastatin Calcium 10 MG TAB PO SCH (20:34)
[2020-06-11] MEDS: Levothyroxine Sodium 50 MCG TAB PO SCH (06:08)
[2020-06-11] MEDS: Dexamethasone 4 mg/ml Vial SLOW IVP SCH (09:04)
[2020-06-11] MEDS: Enoxaparin Sodium 40 MG/0.4 ML SYRINGE SC SCH ×2 (09:04→21:32)
[2020-06-11] MEDS: Cholecalciferol 1,000 UNITS (25 MCG) TAB PO SCH (09:05)
[2020-06-11] MEDS: Zinc Gluconate 50 MG TAB PO SCH (09:05)
[2020-06-11] MEDS: Ascorbic Acid 500 mg Chewable Tablet PO SCH (09:05)
[2020-06-11] MEDS: Furosemide 40 MG TAB PO SCH (09:05)
[2020-06-11] MEDS: Benzonatate 100 MG CAP PO SCH ×3 (09:05→21:32)
[2020-06-11] MEDS: Aspirin 81 mg Enteric Coated Tablet PO SCH (09:05)
[2020-06-11] MEDS: Nystatin 500,000 UNITS/5 ML UDCUP SSW SCH ×4 (09:05→21:32)
[2020-06-11] MEDS: Escitalopram Oxalate 10 mg Tablet PO SCH (09:05)
[2020-06-11] MEDS: Fluticasone Propionate Nasal Spray 16 gm Bottle NASAL SCH ×2 (16:59→22:00)
[2020-06-11] MEDS: Atorvastatin Calcium 10 MG TAB PO SCH (21:32)
[2020-06-12] MEDS: Levothyroxine Sodium 50 MCG TAB PO SCH (05:30)
[2020-06-12] MEDS: Furosemide 40 MG TAB PO SCH (08:30)
[2020-06-12] MEDS: Fluticasone Propionate Nasal Spray 16 gm Bottle NASAL SCH (09:27)
[2020-06-12] MEDS: Zinc Gluconate 50 MG TAB PO SCH (09:34)
[2020-06-12] MEDS: Benzonatate 100 MG CAP PO SCH ×3 (09:34→21:00)
[2020-06-12] MEDS: Aspirin 81 mg Enteric Coated Tablet PO SCH (09:35)
[2020-06-12] MEDS: Cholecalciferol 1,000 UNITS (25 MCG) TAB PO SCH (09:35)
[2020-06-12] MEDS: Enoxaparin Sodium 40 MG/0.4 ML SYRINGE SC SCH ×2 (09:35→21:00)
[2020-06-12] MEDS: Nystatin 500,000 UNITS/5 ML UDCUP SSW SCH ×4 (09:35→21:00)
[2020-06-12] MEDS: Ascorbic Acid 500 mg Chewable Tablet PO SCH (09:35)
[2020-06-12] MEDS: Dexamethasone 4 mg/ml Vial SLOW IVP SCH (09:36)
[2020-06-12] MEDS: Escitalopram Oxalate 10 mg Tablet PO SCH (09:38)
[2020-06-12] MEDS: Atorvastatin Calcium 10 MG TAB PO SCH (21:00)
[2020-06-13] MEDS: Levothyroxine Sodium 50 MCG TAB PO SCH (05:25)
[2020-06-13] MEDS: Fluticasone Propionate Nasal Spray 16 gm Bottle NASAL SCH ×2 (08:43→11:30)
[2020-06-13] MEDS: Furosemide 40 MG TAB PO SCH (08:50)
[2020-06-13] MEDS: Aspirin 81 mg Enteric Coated Tablet PO SCH (08:50)
[2020-06-13] MEDS: Benzonatate 100 MG CAP PO SCH (08:50)
[2020-06-13] MEDS: Enoxaparin Sodium 40 MG/0.4 ML SYRINGE SC SCH (08:50)
[2020-06-13] MEDS: Ascorbic Acid 500 mg Chewable Tablet PO SCH (08:50)
[2020-06-13] MEDS: Cholecalciferol 1,000 UNITS (25 MCG) TAB PO SCH (08:50)
[2020-06-13] MEDS: Dexamethasone 4 mg/ml Vial SLOW IVP SCH (08:50)
[2020-06-13] MEDS: Zinc Gluconate 50 MG TAB PO SCH (08:50)
[2020-06-13] MEDS: Nystatin 500,000 UNITS/5 ML UDCUP SSW SCH (08:50)
[2020-06-13] MEDS: Escitalopram Oxalate 10 mg Tablet PO SCH (08:50)
[2020-06-13 13:34] VITALS: BP 130/71; TEMP 97.8
== END 2020-06-13 12:35 | disposition home or self-care (01) | DRG 177 ==
LOC: CSHERS 17:06 → CSHTELE 23:18
PROVIDERS: ADMIT Student in an Organized Health Care Education/Training Program; ATTEND Internal Medicine
PROC: 8E0ZXY6 Isolation (ICD-10-PCS; principal; 2020-05-26)
DX: U07.1 COVID-19 (principal); J12.82 Pneumonia due to coronavirus disease 2019; J96.01 Acute respiratory failure with hypoxia; E87.1 Hypo-osmolality and hyponatremia; Z68.41 Body mass index [BMI] 40.0-44.9, adult; E78.5 Hyperlipidemia, unspecified; E03.9 Hypothyroidism, unspecified; I12.9 Hypertensive chronic kidney disease with stage 1 through stage 4 chronic kidney disease, or unspecified chronic kidney disease; N18.2 Chronic kidney disease, stage 2 (mild); E87.6 Hypokalemia; E66.01 Morbid (severe) obesity due to excess calories; K21.9 Gastro-esophageal reflux disease without esophagitis; F32.9 Major depressive disorder, single episode, unspecified
CPT/HCPCS: 0240U; 36415; 36416; 36600; 71045; 80048; 80053; 80076; 82728; 82805; 83605; 84145; 84443; 84484; 85025; 85379; 86140; 87040; 87449; 87899; 93005; 94760; 96374; J1100; J1650; J1940; J7050

== ENCOUNTER 2022-12-17 13:11 | Outpatient (CLI) | payer OTHER | END 2022-12-17 13:12 | disposition home or self-care (01) | LOC: CSHCT 13:11 | PROVIDERS: ATTEND Physician Assistant | DX: S00.93XA Contusion of unspecified part of head, initial encounter (principal); R20.2 Paresthesia of skin; W19.XXXA Unspecified fall, initial encounter; M43.12 Spondylolisthesis, cervical region; M47.812 Spondylosis without myelopathy or radiculopathy, cervical region | CPT/HCPCS: 70450; 72125 ==

== ENCOUNTER 2023-01-07 15:36 | Outpatient (CLI) | payer MEDICARE, OTHER | END 2023-01-07 15:37 | disposition home or self-care (01) | LOC: CSHMAMMO 15:36 | PROVIDERS: ATTEND Physician Assistant | DX: Z12.31 Encounter for screening mammogram for malignant neoplasm of breast (principal); N64.89 Other specified disorders of breast; Z80.3 Family history of malignant neoplasm of breast | CPT/HCPCS: 77063; 77067 ==

== ENCOUNTER 2023-02-18 14:00 | Outpatient (CLI) | payer OTHER | END 2023-02-18 14:01 | disposition home or self-care (01) | LOC: CSHMAMMO 14:00 | PROVIDERS: ATTEND Physician Assistant | DX: N64.89 Other specified disorders of breast (principal); R92.2 Inconclusive mammogram; N63.10 Unspecified lump in the right breast, unspecified quadrant | CPT/HCPCS: 76642; 77065; G0279 ==

== ENCOUNTER 2023-09-12 13:43 | Outpatient (CLI) | payer MEDICARE | END 2023-09-12 13:44 | disposition home or self-care (01) | LOC: CSHMAMMO 13:43 | PROVIDERS: ATTEND Physician Assistant | DX: N63.10 Unspecified lump in the right breast, unspecified quadrant (principal) | CPT/HCPCS: 76642; 77065; G0279 ==

== ENCOUNTER 2025-02-06 21:57 | Inpatient (IN) | payer MEDICARE ==
[2025-02-06 22:20] LABS: #Basophils Less than 0.03 10x3/uL (0.0-0.2); #Eosinophils Less than 0.03 10x3/uL (0.0-0.5); #Monocytes 0.16 10x3/uL (0.0-1.1); #Neutrophils 5.36 10x3/uL (1.5-8.4); %Basophils 0.3 % (0.0-2.0); %Eosinophils 0.2 % (0.0-6.0); %Lymphocytes 4.5 % (18.0-47.0); %Monocytes 2.7 % (0.0-10.0); %Neutrophils 92.0 % (40.0-75.0); Hematocrit 33.9 % (34.9-44.5); Hemoglobin 10.6 g/dL (12.0-15.5); Mean Corpuscular Hemoglobin 26.0 pg (27.0-33.0); Mean Corpuscular Volume 83.3 fL (81.6-98.3); Platelet Count 259 10x3/uL (150-450); Red Blood Cell (RBC) Count 4.07 10x6/uL (3.90-5.03); White Blood Cell (WBC) Count 5.83 10x3/uL (3.5-10.5)
[2025-02-06 22:37] LABS: ALT (SGPT) 352 U/L (Less than 34); AST (SGOT) 654 U/L (11-34); Albumin 3.2 g/dL (3.1-4.5); Alkaline Phosphatase 286 U/L (40-110); Anion Gap 14 mmol/L (10-20); BUN (Urea Nitrogen) 12 mg/dL (9.8-20.1); Bilirubin, Total 1.5 mg/dL (0.3-1.2); Calc. Creatinine Clearance 0 mL/min (70-130); Calcium 9.3 mg/dL (7.8-10.44); Carbon Dioxide 19 mmol/L (23-31); Chloride 105 mmol/L (98-107); Globulin 2.7 g/dL (2.4-3.5); Glucose 97 mg/dL (80-115); Potassium 3.5 mmol/L (3.5-5.1); Sodium 134 mmol/L (136-145)
[2025-02-06 22:39] LABS: Troponin I Less than 0.010 ng/mL (< 0.028)
[2025-02-07] MEDS ORDERED: Ketorolac Tromethamine 30 MG (1 mL) VIAL ONE (01:54)
[2025-02-07] MEDS ORDERED: Bisacodyl 10 MG SUPP PR PRN (02:51)
[2025-02-07] MEDS ORDERED: Electrolyte Replacement Protocol 1 EACH FS SCH (03:00)
[2025-02-07] MEDS ORDERED: PHOS-NAK 1 PKT PACK PO PRN (03:15)
[2025-02-07] MEDS ORDERED: Potassium Chloride 20 MEQ in Premix 1 BAG IVPB PRN (03:15)
[2025-02-07] MEDS ORDERED: hydrALAZINE 20 MG/ML VIAL SLOW IVP PRN (03:27)
[2025-02-07 05:51] LABS: Hematocrit 31.9 % (34.9-44.5); Hemoglobin 10.1 g/dL (12.0-15.5); Mean Corpuscular Hemoglobin 26.4 pg (27.0-33.0); Mean Corpuscular Volume 83.5 fL (81.6-98.3); Platelet Count 300 10x3/uL (150-450); Red Blood Cell (RBC) Count 3.82 10x6/uL (3.90-5.03); White Blood Cell (WBC) Count 14.51 10x3/uL (3.5-10.5)
[2025-02-07 05:55] LABS: MDiff Complete? YES; Platelet Adequacy Comment Appears Adequate; RBC Morphology Within Normal Limits
[2025-02-07 05:57] LABS: ALT (SGPT) 425 U/L (Less than 34); AST (SGOT) 552 U/L (11-34); Albumin 3.1 g/dL (3.1-4.5); Alkaline Phosphatase 260 U/L (40-110); Anion Gap 14 mmol/L (10-20); BUN (Urea Nitrogen) 11 mg/dL (9.8-20.1); Bilirubin, Total 2.0 mg/dL (0.3-1.2); Calc. Creatinine Clearance 0 mL/min (70-130); Calcium 10.1 mg/dL (7.8-10.44); Carbon Dioxide 22 mmol/L (23-31); Chloride 102 mmol/L (98-107); Globulin 3.0 g/dL (2.4-3.5); Glucose 112 mg/dL (80-115); Potassium 3.8 mmol/L (3.5-5.1); Sodium 134 mmol/L (136-145)
[2025-02-07 07:25] LABS: Magnesium 1.5 mg/dL (1.6-2.6)
[2025-02-07] MEDS ORDERED: Magnesium 2 GM/50 ML BAG (IN WATER) ONE (08:53)
[2025-02-07] MEDS: Magnesium 2 GM/50 ML(in water) 2 GM in Premix 1 BAG IVPB PRN (09:05)
[2025-02-07 09:11] VITALS: BMI 45.4
[2025-02-07] MEDS ORDERED: Iopamidol 370 76% 100 ML VIAL ONE (10:45)
[2025-02-07] MEDS ORDERED: SUGAMMADEX SODIUM 200 MG/2 ML VIAL ONE (14:04)
[2025-02-07] MEDS ORDERED: Rocuronium Bromide 10 MG/ML (10ML VIAL) ONE (14:04)
[2025-02-07] MEDS ORDERED: PROPOFOL 40 ML ONE (14:04)
[2025-02-07] MEDS: Ondansetron PF 4 MG/2 ML Vial IVP PRN (19:15)
[2025-02-08 05:05] LABS: #Basophils Less than 0.03 10x3/uL (0.0-0.2); #Eosinophils Less than 0.03 10x3/uL (0.0-0.5); #Monocytes 0.49 10x3/uL (0.0-1.1); #Neutrophils 10.53 10x3/uL (1.5-8.4); %Basophils 0.1 % (0.0-2.0); %Eosinophils 0.0 % (0.0-6.0); %Lymphocytes 6.3 % (18.0-47.0); %Monocytes 4.1 % (0.0-10.0); %Neutrophils 89.1 % (40.0-75.0); Hematocrit 32.0 % (34.9-44.5); Hemoglobin 10.1 g/dL (12.0-15.5); Mean Corpuscular Hemoglobin 26.4 pg (27.0-33.0); Mean Corpuscular Volume 83.8 fL (81.6-98.3); Platelet Count 285 10x3/uL (150-450); Red Blood Cell (RBC) Count 3.82 10x6/uL (3.90-5.03); White Blood Cell (WBC) Count 11.83 10x3/uL (3.5-10.5)
[2025-02-08 05:21] LABS: ALT (SGPT) 306 U/L (Less than 34); AST (SGOT) 215 U/L (11-34); Albumin 3.1 g/dL (3.1-4.5); Alkaline Phosphatase 239 U/L (40-110); Anion Gap 12 mmol/L (10-20); BUN (Urea Nitrogen) 8 mg/dL (9.8-20.1); Bilirubin, Total 1.9 mg/dL (0.3-1.2); Calc. Creatinine Clearance 168 mL/min (70-130); Calcium 11.0 mg/dL (7.8-10.44); Carbon Dioxide 24 mmol/L (23-31); Chloride 107 mmol/L (98-107); Globulin 3.2 g/dL (2.4-3.5); Glucose 145 mg/dL (80-115); Magnesium 2.1 mg/dL (1.6-2.6); Potassium 4.5 mmol/L (3.5-5.1); Sodium 138 mmol/L (136-145)
[2025-02-08 11:18] LABS: Glucose, Urine (Dipstick) Normal (Negative); Leukocyte 500 (Negative); Protein, Urine (Dipstick) 100 mg/dl (Neg-Trace); Specific Gravity, Urine 1.025 (1.005-1.030)
[2025-02-08 11:25] LABS: CAUTI Indications for Culture Dysuria,urgency,freq; WBC/HPF Greater than 50 HPF (0-3)
[2025-02-08 11:28] LABS: Bacteria/HPF 2+ HPF (None Seen)
[2025-02-08 11:29] LABS: Urine Culture Reflex Yes Yes
[2025-02-09] MEDS: Acetaminophen 325 MG TAB PO PRN (00:38)
[2025-02-09] MEDS: Melatonin 3 MG TAB PO PRN (00:47)
[2025-02-09 07:33] LABS: #Basophils 0.03 10x3/uL (0.0-0.2); #Eosinophils 0.09 10x3/uL (0.0-0.5); #Monocytes 0.81 10x3/uL (0.0-1.1); #Neutrophils 9.49 10x3/uL (1.5-8.4); %Basophils 0.2 % (0.0-2.0); %Eosinophils 0.7 % (0.0-6.0); %Lymphocytes 14.3 % (18.0-47.0); %Monocytes 6.6 % (0.0-10.0); %Neutrophils 78.0 % (40.0-75.0); Hematocrit 30.1 % (34.9-44.5); Hemoglobin 9.4 g/dL (12.0-15.5); Mean Corpuscular Hemoglobin 26.9 pg (27.0-33.0); Mean Corpuscular Volume 86.2 fL (81.6-98.3); Platelet Count 267 10x3/uL (150-450); Red Blood Cell (RBC) Count 3.49 10x6/uL (3.90-5.03); White Blood Cell (WBC) Count 12.19 10x3/uL (3.5-10.5)
[2025-02-09 08:07] LABS: ALT (SGPT) 188 U/L (Less than 34); AST (SGOT) 81 U/L (11-34); Albumin 3.0 g/dL (3.1-4.5); Alkaline Phosphatase 205 U/L (40-110); Anion Gap 10 mmol/L (10-20); BUN (Urea Nitrogen) 9 mg/dL (9.8-20.1); Bilirubin, Total 0.7 mg/dL (0.3-1.2); Calc. Creatinine Clearance 171 mL/min (70-130); Calcium 10.5 mg/dL (7.8-10.44); Carbon Dioxide 25 mmol/L (23-31); Chloride 105 mmol/L (98-107); Globulin 3.0 g/dL (2.4-3.5); Glucose 128 mg/dL (80-115); Potassium 3.8 mmol/L (3.5-5.1); Sodium 136 mmol/L (136-145)
[2025-02-09] MEDS: Atenolol 25 MG TAB PO SCH (12:57)
[2025-02-09] MEDS: Pantoprazole 40 MG DR.TAB PO SCH (21:56)
[2025-02-09] MEDS: QUEtiapine 25 MG TAB PO SCH (21:56)
[2025-02-10 06:20] LABS: #Basophils 0.04 10x3/uL (0.0-0.2); #Eosinophils 0.21 10x3/uL (0.0-0.5); #Monocytes 0.70 10x3/uL (0.0-1.1); #Neutrophils 4.77 10x3/uL (1.5-8.4); %Basophils 0.5 % (0.0-2.0); %Eosinophils 2.5 % (0.0-6.0); %Lymphocytes 30.5 % (18.0-47.0); %Monocytes 8.5 % (0.0-10.0); %Neutrophils 57.6 % (40.0-75.0); Hematocrit 30.1 % (34.9-44.5); Hemoglobin 9.2 g/dL (12.0-15.5); Mean Corpuscular Hemoglobin 26.2 pg (27.0-33.0); Mean Corpuscular Volume 85.8 fL (81.6-98.3); Platelet Count 279 10x3/uL (150-450); Red Blood Cell (RBC) Count 3.51 10x6/uL (3.90-5.03); White Blood Cell (WBC) Count 8.27 10x3/uL (3.5-10.5)
[2025-02-10 06:42] LABS: ALT (SGPT) 134 U/L (Less than 34); AST (SGOT) 41 U/L (11-34); Albumin 2.9 g/dL (3.1-4.5); Alkaline Phosphatase 187 U/L (40-110); Anion Gap 11 mmol/L (10-20); BUN (Urea Nitrogen) 8 mg/dL (9.8-20.1); Bilirubin, Total 0.7 mg/dL (0.3-1.2); Calc. Creatinine Clearance 160 mL/min (70-130); Calcium 10.8 mg/dL (7.8-10.44); Carbon Dioxide 27 mmol/L (23-31); Chloride 106 mmol/L (98-107); Globulin 3.3 g/dL (2.4-3.5); Glucose 103 mg/dL (80-115); Potassium 4.0 mmol/L (3.5-5.1); Sodium 140 mmol/L (136-145)
[2025-02-10 08:03] VITALS: TEMP 98.3
[2025-02-10] MEDS: Bupropion 150 MG SR.TAB PO SCH (09:03)
[2025-02-10] MEDS: Atenolol 25 MG TAB PO SCH (09:04)
[2025-02-10 11:50] VITALS: BP 151/80
== END 2025-02-10 11:55 | disposition home or self-care (01) | DRG 446 ==
LOC: CSHERS 21:57 → CSHERHOLD 02-07 02:50 → CSHTELE 02-07 16:05
PROVIDERS: ADMIT Internal Medicine; ATTEND Internal Medicine
PROC: 0FC98ZZ Extirpation of Matter from Common Bile Duct, Via Natural or Artificial Opening Endoscopic (ICD-10-PCS; principal; 2025-02-07)
PROC: 0F798ZZ Dilation of Common Bile Duct, Via Natural or Artificial Opening Endoscopic (ICD-10-PCS; 2025-02-07)
PROC: 3E03329 Introduction of Other Anti-infective into Peripheral Vein, Percutaneous Approach (ICD-10-PCS; 2025-02-07)
DX: K80.30 Calculus of bile duct with cholangitis, unspecified, without obstruction (principal); I10 Essential (primary) hypertension; E03.9 Hypothyroidism, unspecified; E66.01 Morbid (severe) obesity due to excess calories; Z98.84 Bariatric surgery status; K21.9 Gastro-esophageal reflux disease without esophagitis; F32.A Depression, unspecified; Z79.899 Other long term (current) drug therapy; Z79.890 Hormone replacement therapy; Z90.49 Acquired absence of other specified parts of digestive tract; Z83.3 Family history of diabetes mellitus; R74.01 Elevation of levels of liver transaminase levels; G47.33 Obstructive sleep apnea (adult) (pediatric); R09.02 Hypoxemia; H40.9 Unspecified glaucoma; Z98.51 Tubal ligation status; Z90.89 Acquired absence of other organs; R79.89 Other specified abnormal findings of blood chemistry; E55.9 Vitamin D deficiency, unspecified; Z86.16 Personal history of COVID-19; Z98.42 Cataract extraction status, left eye; Z98.41 Cataract extraction status, right eye; Z82.49 Family history of ischemic heart disease and other diseases of the circulatory system; F10.90 Alcohol use, unspecified, uncomplicated; Z88.8 Allergy status to other drugs, medicaments and biological substances; E78.2 Mixed hyperlipidemia; R73.03 Prediabetes; R93.1 Abnormal findings on diagnostic imaging of heart and coronary circulation; I25.10 Atherosclerotic heart disease of native coronary artery without angina pectoris
CPT/HCPCS: 36415; 36416; 71045; 71275; 74181; 74330; 76376; 76705; 80053; 81001; 83690; 83735; 83880; 84100; 84484; 85025; 87086; 87428; 93005; 93010; 93970; 94760; 94762; 96374; 96375; J1100; J1885; J2060; J2270; J2405; J2543; J2704; J3475; Q9967; S8037